=== PATIENT | female | born 1980 | race Caucasian/White ===

== ENCOUNTER 2016-10-22 21:44 | Emergency (ER) | payer BC ==
[~2016-10-22] VITALS: Ht 160 cm; Wt 99.8 kg
[~2016-10-22 21:44] MED LIST: ATOR10TA66; BIRTH CONTROL PILL; LEVO150T6; LVT.1T PO; PHEN-640 PO; PHEN37.53; Ranitidine; SULF1TAB35 PO
[2016-10-22] MEDS ORDERED: KETOROLAC 60 MG/2 ML VIAL IM ONE (22:00)
[2016-10-22] MEDS ORDERED: morphine INJ 10 MG/ML 1ML (SYR OR VIAL) IM ONE (22:00)
--- NOTE | 2016-10-22 22:01 | ED Back Pain ---
General Chief Complaint: Back Problems Stated Complaint: BACK PAIN Source of Information: Patient Exam Limitations: No Limitations (WILL MAYA APRN) History of Present Illness Time Seen by Provider: 21:59 Initial Comments Medial border mid right scapula that wraps around the right lateral chest wall to the right from the chest. This is worsened with movement of the right arm and deep breathing. This pain became much worse one hour ago suddenly while she was helping her father off of the bedside commode. She is been seeing her regular doctor for this and was recently started on gabapentin because the pain shoots tingling sensations down her right arm when she coughs. She denies any shortness of breath. She was recently started on Flexeril. Location: T-Spine Timing/Duration: Getting Worse, Intermittent Severity: Moderate (WILL MAYA APRN) Allergies and Home Medications Allergies Coded Allergies: No Known Drug Allergies (Unverified , 11/19/11) Home Medications Atorvastatin Calcium 10 Mg Tablet, #30 (Reported) Diclofenac Sodium 50 Mg Tablet.dr, 50 MG PO Q6H PRN for BACK PAIN, #30 Ref 0 Prescribed by: PATRICK OLIVAS on 10/23/16 002 Levothyroxine Sodium 150 Mcg Tablet, #30 (Reported) Methocarbamol 750 Mg Tablet, 1,500 MG PO UD, #60 Ref 0 Prescribed by: PATIRCK OLIVAS on 10/23/1627 Phenazopyridine HCl 200 Mg Tablet, 1 TAB PO BID, #6 Prescribed by: ENRIQUE CHOWDHURY on 03/08/16 0723 Phentermine HCl 37.5 Mg Tablet, #30 (Reported) Sulfamethoxazole/Trimethoprim 1 Each Tablet, 1 EACH PO BID, #14 Prescribed by: ENRIQUE CHOWDHURY on 03/08/16 0723 [ Control Pill] , DAILY, (Reported) [Ranitidine] , (Reported) Constitutional: see HPI EENTM: see HPI Respiratory: see HPI, No cough, No hemoptysis, No orthopnea, No short of breath Genitourinary: no symptoms reported Musculoskeletal: see HPI Skin: no symptoms reported Psychiatric/Neurological: No Symptoms Reported (WILL MAYA APRN) Past Ynfgyyv-Hsthyn-Gwkzqy Hx Patient Social History Type Used: Cigarettes Recent Foreign Travel: No Contact w/Someone Who Travel: No Recent Hopitalizations: No (WILL MAYA APRN) Seasonal Allergies Seasonal Allergies: No (WILL MAYA APRN) Surgeries HX Surgeries: Yes (Cystoscopy, D&C 2002,2003) Surgeries: Orthopedic (WILL MAYA APRN) Respiratory Hx Respiratory Disorders: No (WILL MAYA APRN) Cardiovascular Hx Cardiac Disorders: Yes Cardiac Disorders: High Cholesterol (WILL MAYA APRN) Neurological Hx Neurological Disorders: No (WILL MAYA APRN) Reproductive System Hx Reproductive Disorders: No (WILL MAYA APRN) Genitourinary Hx Genitourinary Disorders: Yes (blood in urine without stones found by urologist) (WILL MAYA APRN) Gastrointestinal Hx Gastrointestinal Disorders: Yes Gastrointestinal Disorders: Gastroesophageal Reflux (WILL MAYA APRN) Musculoskeletal Hx Musculoskeletal Disorders: Yes Musculoskeletal Disorders: Chronic Back Pain (WILL MAYA APRN) Endocrine Hx Endocrine Disorders: Yes Endocrine Disorders: Hypothyroidsim (WILL MAYA APRN) HEENT HX ENT Disorders: No (WILL MAYA APRN) Cancer Hx Cancer: No (WILL MAYA APRN) Psychosocial Hx Psychiatric Problems: No (WILL MAYA APRN) Integumentary HX Skin/Integumentary Disorder: No (WILL MAYA APRN) Blood Transfusions Hx Blood Disorders: No (WILL MAYA APRN) Physical Exam Vital Signs Vital Sign - Last 12Hours 10/22/16 21:51 Temp 97.5 Pulse 85 Resp 20 B/P (MAP) 133/94 Pulse Ox 96 O2 Delivery Room Air (PATRICK OLIVAS DO) Vital Signs Capillary Refill : (WILL MAYA APRN) General Appearance: No Apparent Distress, WD/WN HEENT: PERRL/EOMI, TMs Normal Neck: Full Range of Motion, Normal Inspection Cardiovascular: Normal Peripheral Pulses, Tachycardia (105. She is crying.) Respiratory: Normal Breath Sounds, No Accessory Muscle Use, No Respiratory Distress Gastrointestinal: Normal Bowel Sounds, Non Tender, Soft Extremity: Normal Capillary Refill, Normal Inspection, Other (Limited range of motion of the shoulder) Neurologic/Psychiatric: Alert, Oriented x3, No Motor/Sensory Deficits, Normal Mood/Affect Skin: Normal Color, Warm/Dry (WILL MAYA APRN) Progress/Results/Core Measures Results/Orders Lab Results Laboratory Tests Test 10/22/16 22:29 Range/Units White Blood Count 9.5 4.3-11.0 10^3/uL Red Blood Count 4.40 4.35-5.85 10^6/uL Hemoglobin 13.4 11.5-16.0 G/DL Hematocrit 40 35-52 % Mean Corpuscular Volume 91 80-99 FL Mean Corpuscular Hemoglobin 31 25-34 PG Mean Corpuscular Hemoglobin Concent 34 32-36 G/DL Red Cell Distribution Width 13.5 10.0-14.5 % Platelet Count 318 130-400 10^3/uL Mean Platelet Volume 9.4 7.4-10.4 FL Neutrophils (%) (Auto) 50 42-75 % Lymphocytes (%) (Auto) 42 12-44 % Monocytes (%) (Auto) 6 0-12 % Eosinophils (%) (Auto) 3 0-10 % Basophils (%) (Auto) 1 0-10 % Neutrophils # (Auto) 4.7 1.8-7.8 X 10^3 Lymphocytes # (Auto) 3.9 1.0-4.0 X 10^3 Monocytes # (Auto) 0.5 0.0-1.0 X 10^3 Eosinophils # (Auto) 0.2 0.0-0.3 10^3/uL Basophils # (Auto) 0.1 0.0-0.1 10^3/uL D-Dimer 1.49 H 0.00-0.49 UG/ML (PATRICK OLIVAS DO) My Orders Orders - PATRICK OLIVAS DO Ct Angio Chest W (10/22/16 23:09) Methocarbamol Tablet (Robaxin Tablet) (10/23/16 00:30) Rx-Hydrocodone/Apap 5-325 Mg (Rx-Vicodin (10/23/16 00:30) (PATRICK OLIVAS DO) Medications Given in ED (PATRICK OLIVAS DO) Vital Signs/I&O Vital Sign - Last 12Hours 10/22/16 10/23/16 21:51 00:44 Temp 97.5 Pulse 85 71 Resp 20 18 B/P (MAP) 133/94 Pulse Ox 96 97 O2 Delivery Room Air (PATRICK OLIVAS DO) Diagnostic Imaging Diagonstic Imaging: CT Plain Films/CT/US/NM/MRI: chest, c-spine, other (t-spine all failed to reveal anything acute) Reviewed: [facility]) Departure Communication Progress Notes 2233- labs are pending given the questionable right middle lobe infiltrate on x- ray combined with her pleuritic chest pain. Awaiting CT interpretation. Care turned over to Dr. Olivas. (WILL MAYA APRN) Impression Impression: Primary Impression: Acute on chronic cervical-thoracic back pain Additional Impression: Acute thoracic myofascial strain Disposition: HOME, SELF-CARE Condition: Stable Departure-Patient Inst. Decision time for Depature: 00:25 (PATRICK OLIVAS DO) Referrals: [facility] (PCP/Family) Primary Care Physician Patient Instructions: Upper Back Pain (DC) Add. Discharge Instructions: All discharge instructions reviewed with patient and/or family. Voiced understanding. MIGHT CHECK WITH YOUR PCP REGARDING PHYSICAL THERAPY OR CHIROPRACTIC FOLLOW UP. Scripts Methocarbamol (Robaxin-750) 750 Mg Tablet 1500 MG PO UD for BACK PAIN/SPASM, #60 TAB 0 Refills Prov: PATRICK OLIVAS DO 10/23/16 Diclofenac Sodium (Diclofenac Sodium) 50 Mg Tablet. 50 MG PO Q6H Y for BACK PAIN, #30 TAB 0 Refills Prov: PATRICK OLIVAS DO 10/23/16 WILL MAYA APRN Oct 22, 2016 22:01 PATRICK OLIVAS DO Oct 23, 2016 00:28
[2016-10-22 22:44] LABS: BASOPHILS # (AUTO) 0.1 10^3/uL (0.0-0.1); BASOPHILS % (AUTO) 1 % (0-10); EOSINOPHILS # (AUTO) 0.2 10^3/uL (0.0-0.3); EOSINOPHILS % (AUTO) 3 % (0-10); LYMPHOCYTES # (AUTO) 3.9 X 10^3 (1.0-4.0); LYMPHOCYTES % (AUTO) 42 % (12-44); MEAN CORPUSCULAR HEMOGLOBIN 31 PG (25-34); MEAN CORPUSCULAR HGB CONC 34 G/DL (32-36); MEAN CORPUSCULAR VOLUME 91 FL (80-99); MEAN PLATELET VOLUME 9.4 FL (7.4-10.4); MONOCYTES # (AUTO) 0.5 X 10^3 (0.0-1.0); MONOCYTES % (AUTO) 6 % (0-12); NEUTROPHILS # (AUTO) 4.7 X 10^3 (1.8-7.8); NEUTROPHILS % (AUTO) 50 % (42-75); PLATELET COUNT 318 10^3/uL (130-400); RED CELL DISTRIBUTION WIDTH 13.5 % (10.0-14.5); WHITE BLOOD COUNT 9.5 10^3/uL (4.3-11.0)
[2016-10-22] MEDS ORDERED: IOHEXOL 350 MG/ML 100 ML (OMNIPAQUE 350) VIAL IV ONE (23:30)
[2016-10-22] MEDS ORDERED: NS 100 ML (IVPB) BAG IV ONE (23:30)
[2016-10-23] MEDS ORDERED: METH-313 PO (00:28)
[2016-10-23] MEDS ORDERED: DICL50TA6 PO (00:28)
[2016-10-23] MEDS ORDERED: RX-HYDROCODONE/APAP 5/325 MG #4 TAB PK PO PRN (00:30)
[2016-10-23] MEDS ORDERED: METHOCARBAMOL 750 MG (ROBAXIN) TAB PO ONE (00:30)
[2016-10-23 00:44] VITALS: BP 130/95
--- NOTE | 2016-10-23 08:13 | Diagnostic Imaging Report ---
PA and lateral views of the chest. INDICATION: Patient was lifting someone and heard a pop in the back with back pain. FINDINGS: There is a right middle lobe atelectasis and opacity in a linear fashion suggestive of atelectasis. The left lung is clear. The heart size is normal. No effusion or pneumothorax. Mediastinum and lissette appear unremarkable. IMPRESSION: Subsegmental atelectasis in the right middle lobe. Dictated by: Dictated on workstation # [id number]
--- NOTE | 2016-10-23 08:32 | Diagnostic Imaging Report ---
EXAMINATION: CT cervical spine and thoracic spine performed without intravenous contrast. INDICATION: Patient was lifting someone and heard a pop in her back with back and neck pain. FINDINGS: CT cervical spine: There is straightening of the lordotic curvature. The alignment of the posterior spinal line, the facet joints, the lateral masses of C1 and C2, and the atlantooccipital joints is satisfactory. The vertebral body heights are preserved. Disc heights are also preserved. There is minimal osteophyte formation at C5-C6 level with mild disc herniation suggested. No fracture seen. No foraminal stenosis. CT thoracic spine: There is satisfactory alignment of the posterior spinal line and the facet joints. The vertebral body heights are normal. The disc heights are also normal. There is suggestion of a disc herniation, T6-T7 level. No other definite disc herniation is seen. No posterior osteophytes. Multilevel mild anterior osteophytes are noted. No fracture is seen. IMPRESSION: CT cervical spine: 1. Straightening of the lordotic curvature is presumably positional. No fracture seen. 2. Minimal posterior osteophyte and disc herniation suggested at C5-C6 level. CT thoracic spine: 1. No fracture seen. 2. Suggestion of disc herniation at T6-T7 level. 3. The effect of the above-mentioned disc herniations on the thecal sac and spinal cord can be better evaluated with MRI if needed. Dictated by: Dictated on workstation # [id number]
--- NOTE | 2016-10-23 08:37 | Diagnostic Imaging Report ---
PROCEDURE: CT angiography of the chest with contrast. TECHNIQUE: Multiple contiguous axial images were obtained through the chest after uneventful bolus administration of intravenous contrast. Reconstructed CTA MIP acquisitions were also performed. INDICATION: Difficulty breathing. Patient heard a pop while lifting someone. Back pain. FINDINGS: The thoracic aorta is normal in caliber. No aneurysm or dissection. The pulmonary arteries are well opacified with no filling defects to suggest pulmonary embolism. The mediastinum demonstrates anterior soft tissue density likely related to remnant of the thymus. No lymphadenopathy. No hilar lymphadenopathy either. There is a no axillary lymphadenopathy as well. The heart size is normal. No pericardial or pleural effusion. There are linear areas of subsegmental consolidation within the right middle lobe and lingula suggestive of atelectasis. There is otherwise no significant consolidation, mass, or suspicious pulmonary nodule. Sections of the upper abdomen and the osseous structures demonstrate no significant abnormality. IMPRESSION: 1. No aortic dissection or pulmonary embolism. 2. Suggestion of subsegmental atelectasis in the right middle lobe and the lingula. Dictated by: Dictated on workstation # [id number]
== END 2016-10-23 00:43 | disposition home or self-care (01) ==
LOC: EDUNIT# 21:44 → ER 21:45
DX: S29.019A Strain of muscle and tendon of unspecified wall of thorax, initial encounter (principal); M54.2 Cervicalgia; G89.29 Other chronic pain; E78.00 Pure hypercholesterolemia, unspecified; E03.9 Hypothyroidism, unspecified; F17.210 Nicotine dependence, cigarettes, uncomplicated; X58.XXXA Exposure to other specified factors, initial encounter
CPT/HCPCS: 36415; 71020; 71275; 72125; 72128; 85025; 85379; 96372

== ENCOUNTER 2017-02-08 08:52 | Emergency (ER) | payer BC ==
[~2017-02-08] VITALS: Ht 160 cm; Wt 77.1 kg
[~2017-02-08 08:52] MED LIST changes: +DICL50TA6 PO; +METH-313 PO
--- OUTSIDE RECORDS SUMMARY | 2017-02-08 08:57 | XMS REPORT ---
Author Author PATRICK ANGEL [facility] Address [address] [place] [address] Care Team Providers Care Digital Sales Director Name Role Phone PATRICK ANGEL Unavailable PROBLEMS Type Condition ICD9-CM Code [id number] Code Onset Dates Condition Status SNOMED Code Problem Obesity (BMI 35.0-39.9 without comorbidity) E66.01 Active 627547512 Problem Tobacco abuse Z72.0 Active 627750153 Problem Hematuria R31.9 Active 17076190 Problem Bilateral headaches R51 Active 786325167 Problem Left low back pain, with sciatica presence unspecified M54.5 Active 154273635 Problem Lumbago with sciatica, right side M54.41 Active 958721813 Problem Hypothyroidism (acquired) E03.9 Active 570188454 Problem Mixed hyperlipidemia E78.2 Active 598750049 Problem Urinary incontinence in female R32 Active 353947976 Problem Psoriasis L40.9 Active 0594177 Problem Non morbid obesity due to excess calories E66.09 Active 271598479 ALLERGIES Substance Reaction Event Type Date Status Tramadol HCl nausea Drug Allergy May, Active Topamax neuropathy Drug Allergy May, Active Parafon Forte DSC irritability Drug Allergy May, Active BuSpar anaphylaxis Drug Allergy May, Active SOCIAL HISTORY No smoking Hx information available PLAN OF CARE VITAL SIGNS Height 62 in 2016-05-16 Weight 208.1 lbs 2016-05-16 Temperature 98.4 degrees Fahrenheit 2016-05-16 Heart Rate 78 bpm 2016-05-16 Respiratory Rate 18 2016-05-16 BMI 38.06 kg/m2 2016-05-16 Blood pressure systolic 112 mmHg 2016-05-16 Blood pressure diastolic 74 mmHg 2016-05-16 MEDICATIONS Medication Instructions Dosage Frequency Start Date End Date Duration Status Ortho Tri-Cyclen (28) 0.18/0.215/0.25 MG-35 MCG Orally Once a day 1 tablet 24h Active Atorvastatin Calcium 10 mg Orally Once a day 1 tablet 24h Jan, 30 day(s) Active Acidophilus - Orally Once a day 1 tablet 24h Apr, Active Ranitidine HCl 150 mg take 1 capsule (150 mg) by oral route 2 times per day Nov, Active Ativan 0.5 MG 1 tablet 12h 18 Jun, 2014 Active Levothyroxine Sodium 150 MCG Orally Once a day 1 tablet 24h 30 Active Phentermine HCl 37.5 MG Orally Once a day 1 tablet 24h Active RESULTS No Results PROCEDURES Procedure Date Ordered Related Diagnosis Body Site Office Visit, Est Pt., Level 3 May 16, 2016 IMMUNIZATIONS No Known Immunizations
--- OUTSIDE RECORDS SUMMARY | 2017-02-08 08:57 | XMS REPORT ---
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 Name Role Phone PATRICK ANGEL Unavailable PROBLEMS Type Condition ICD9-CM Code [id number] Code Onset Dates Condition Status SNOMED Code Problem Obesity (BMI 35.0-39.9 without comorbidity) E66.01 Active 159082398 Problem Tobacco abuse Z72.0 Active 346782709 Problem Hematuria R31.9 Active 63752314 Problem Bilateral headaches R51 Active 751004087 Problem Left low back pain, with sciatica presence unspecified M54.5 Active 383232421 Problem Lumbago with sciatica, right side M54.41 Active 006558136 Problem Hypothyroidism (acquired) E03.9 Active 259111188 Problem Mixed hyperlipidemia E78.2 Active 046684839 Problem Urinary incontinence in female R32 Active 088311786 Problem Psoriasis L40.9 Active 6346248 Problem Non morbid obesity due to excess calories E66.09 Active 676586926 ALLERGIES Substance Reaction Event Type Date Status Tramadol HCl nausea Drug Allergy May, Active Topamax neuropathy Drug Allergy May, Active Parafon Forte DSC irritability Drug Allergy May, Active BuSpar anaphylaxis Drug Allergy May, Active SOCIAL HISTORY No smoking Hx information available PLAN OF CARE VITAL SIGNS Height 62 in 2016-05-22 Weight 209.3 lbs 2016-05-22 Temperature 98.3 degrees Fahrenheit 2016-05-22 Heart Rate 92 bpm 2016-05-22 Respiratory Rate 20 2016-05-22 BMI 38.28 kg/m2 2016-05-22 Blood pressure systolic 116 mmHg 2016-05-22 Blood pressure diastolic 82 mmHg 2016-05-22 MEDICATIONS Medication Instructions Dosage Frequency Start Date End Date Duration Status Atorvastatin Calcium 10 mg Orally Once a day 1 tablet 24h Jan, 30 day(s) Active Levothyroxine Sodium 150 MCG Orally Once a day 1 tablet 24h 30 Active Acidophilus - Orally Once a day 1 tablet 24h Apr, Active Pyridium 100 MG Orally Three times a day 1 tablet after meals 8h May, May, 2 day(s) Active Ativan 0.5 MG 1 tablet 12h 18 Jun, 2014 Active Ortho Tri-Cyclen (28) 0.18/0.215/0.25 MG-35 MCG Orally Once a day 1 tablet 24h Active Ranitidine HCl 150 mg take 1 capsule (150 mg) by oral route 2 times per day Nov, Active Phentermine HCl 37.5 MG Orally Once a day 1 tablet 24h Active Bactrim DS 800-160 MG Orally Twice a day 1 tablet 12h 12 May, 2016May 10 day(s) Active RESULTS Name Result Date Reference Range UA LONG DIP (IN HOUSE) 2016-05-22 Lot # [id number] Exp date 01/2017 Clarity clear Color yellow Odor none GLU negative RAOUL negative KET negative SG 1.015 BLO 1+ pH 7.5 Protein negative URO 0.2 NIT negative SADAF negative Lot # Exp date PROCEDURES Procedure Date Ordered Related Diagnosis Body Site URINALYSIS, AUTO, W/O SCOPE May 22, 2016 Office Visit, Est Pt., Level 3 May 22, 2016 IMMUNIZATIONS No Known Immunizations
--- OUTSIDE RECORDS SUMMARY | 2017-02-08 08:58 | XMS REPORT | Continuity of Care Document ---
Author Author [facility] Address Unknown Phone Unavailable Allergies Medications Problems Date Dx Coded Attending Type Code Diagnosis Diagnosed By 11/15/2008 709.9 DERMATITIS OTHER SKIN DISORDERS 11/15/2008 709.9 DERMATITIS OTHER SKIN DISORDERS 11/15/2008 709.9 DERMATITIS OTHER SKIN DISORDERS 11/15/2008 PATRICK ANGEL APRN 709.9 DERMATITIS OTHER SKIN DISORDERS 11/15/2008 PATRICK ANGEL APRN 709.9 DERMATITIS OTHER SKIN DISORDERS 11/15/2008 MARIAN MEDINA DDS 709.9 DERMATITIS OTHER SKIN DISORDERS 11/15/2008 PATRICK ANGEL APRN 709.9 DERMATITIS OTHER SKIN DISORDERS 11/15/2008 PATRICK ANGEL APRN 709.9 DERMATITIS OTHER SKIN DISORDERS 11/15/2008 PATRICK ANGEL APRN 709.9 DERMATITIS OTHER SKIN DISORDERS 11/15/2008 PATRICK ANGEL APRN 709.9 DERMATITIS OTHER SKIN DISORDERS 11/15/2008 PATRICK ANGEL APRN 709.9 DERMATITIS OTHER SKIN DISORDERS 11/15/2008 PATRICK ANGEL APRN 709.9 DERMATITIS OTHER SKIN DISORDERS 11/15/2008 PATRICK ANGEL APRN 709.9 DERMATITIS OTHER SKIN DISORDERS 11/15/2008 PATRICK ANGEL APRN 709.9 DERMATITIS OTHER SKIN DISORDERS 11/15/2008 PATRICK ANGEL APRN 709.9 DERMATITIS OTHER SKIN DISORDERS 11/15/2008 PATRICK ANGEL APRN 709.9 DERMATITIS OTHER SKIN DISORDERS 11/15/2008 PATRICK ANGEL APRN 709.9 DERMATITIS OTHER SKIN DISORDERS 05/13/2010 300.00 anxiety 05/13/2010 300.00 anxiety 05/13/2010 300.00 anxiety 05/13/2010 PATRICK ANGEL APRN 300.00 anxiety 05/13/2010 PATRICK ANGEL APRN 300.00 anxiety 05/13/2010 MARIAN MEDINA DDS 300.00 anxiety 05/13/2010 STANLEY TERMITE EXTERMINATOR HELPER, PATRICK T 300.00 anxiety 05/13/2010 STANLEY TERMITE EXTERMINATOR HELPER, PATRICK T 300.00 anxiety 05/13/2010 STANLEY TERMITE EXTERMINATOR HELPER, PATRICK T 300.00 anxiety 05/13/2010 STANLEY TERMITE EXTERMINATOR HELPER, PATRICK T 300.00 anxiety 05/13/2010 STANLEY TERMITE EXTERMINATOR HELPER, PATRICK T 300.00 anxiety 05/13/2010 STANLEY TERMITE EXTERMINATOR HELPER, PATRICK T 300.00 anxiety 05/13/2010 STANLEY TERMITE EXTERMINATOR HELPER, PATRICK T 300.00 anxiety 05/13/2010 STANLEY TERMITE EXTERMINATOR HELPER, PATRICK T 300.00 anxiety 05/13/2010 STANLEY TERMITE EXTERMINATOR HELPER, PATRICK T 300.00 anxiety 05/13/2010 STANLEY TERMITE EXTERMINATOR HELPER, PATRICK T 300.00 anxiety 05/13/2010 STANLEY TERMITE EXTERMINATOR HELPER, PATRICK T 300.00 anxiety 01/22/2011 244.9 HYPOTHYROIDISM 01/22/2011 244.9 HYPOTHYROIDISM 01/22/2011 244.9 HYPOTHYROIDISM 01/22/2011 STANLEY TERMITE EXTERMINATOR HELPER, PATRICK T 244.9 HYPOTHYROIDISM 01/22/2011 STANLEY TERMITE EXTERMINATOR HELPER, PATRICK T 244.9 HYPOTHYROIDISM 01/22/2011 ADAM GAMBINOS, MARIAN N 244.9 HYPOTHYROIDISM 01/22/2011 STANLEY TERMITE EXTERMINATOR HELPER, PATRICK T 244.9 HYPOTHYROIDISM 01/22/2011 STANLEY TERMITE EXTERMINATOR HELPER, PATRICK T 244.9 HYPOTHYROIDISM 01/22/2011 STANLEY TERMITE EXTERMINATOR HELPER, PATRICK T 244.9 HYPOTHYROIDISM 01/22/2011 STANLEY TERMITE EXTERMINATOR HELPER, PATRICK T 244.9 HYPOTHYROIDISM 01/22/2011 STANLEY TERMITE EXTERMINATOR HELPER, PATRICK T 244.9 HYPOTHYROIDISM 01/22/2011 STANLEY TERMITE EXTERMINATOR HELPER, PATRICK T 244.9 HYPOTHYROIDISM 01/22/2011 STANLEY TERMITE EXTERMINATOR HELPER, PATRICK T 244.9 HYPOTHYROIDISM 01/22/2011 STANLEY TERMITE EXTERMINATOR HELPER, PATRICK T 244.9 HYPOTHYROIDISM 01/22/2011 STANLEY TERMITE EXTERMINATOR HELPER, PATRICK T 244.9 HYPOTHYROIDISM 01/22/2011 STANLEY TERMITE EXTERMINATOR HELPER, PATRICK T 244.9 HYPOTHYROIDISM 01/22/2011 STANLEY TERMITE EXTERMINATOR HELPER, PATRICK T 244.9 HYPOTHYROIDISM 02/05/2011 780.50 SLEEP DISTURBANCE, UNSPECIFIED 02/05/2011 780.50 SLEEP DISTURBANCE, UNSPECIFIED 02/05/2011 780.50 SLEEP DISTURBANCE, UNSPECIFIED 02/05/2011 STANLEY TERMITE EXTERMINATOR HELPER, PATRICK T 780.50 SLEEP DISTURBANCE, UNSPECIFIED 02/05/2011 STANLEY TERMITE EXTERMINATOR HELPER, PATRICK T 780.50 SLEEP DISTURBANCE, UNSPECIFIED 02/05/2011 RAFAELHALU IMMANUELS, MARIAN N 780.50 SLEEP DISTURBANCE, UNSPECIFIED 02/05/2011 STANLEY TERMITE EXTERMINATOR HELPER, PATRICK T 780.50 SLEEP DISTURBANCE, UNSPECIFIED 02/05/2011 STANLEY TERMITE EXTERMINATOR HELPER, PATRICK T 780.50 SLEEP DISTURBANCE, UNSPECIFIED 02/05/2011 STANLEY TERMITE EXTERMINATOR HELPER, PATRICK T 780.50 SLEEP DISTURBANCE, UNSPECIFIED 02/05/2011 STANLEY TERMITE EXTERMINATOR HELPER, PATRICK T 780.50 SLEEP DISTURBANCE, UNSPECIFIED 02/05/2011 STANLEY TERMITE EXTERMINATOR HELPER, PATRICK T 780.50 SLEEP DISTURBANCE, UNSPECIFIED 02/05/2011 STANLEY TERMITE EXTERMINATOR HELPER, PATRICK T 780.50 SLEEP DISTURBANCE, UNSPECIFIED 02/05/2011 STANLEY TERMITE EXTERMINATOR HELPER, PATRICK T 780.50 SLEEP DISTURBANCE, UNSPECIFIED 02/05/2011 STANLEY TERMITE EXTERMINATOR HELPER, PATRICK T 780.50 SLEEP DISTURBANCE, UNSPECIFIED 02/05/2011 STANLEY TERMITE EXTERMINATOR HELPER, PATRICK T 780.50 SLEEP DISTURBANCE, UNSPECIFIED 02/05/2011 STANLEY TERMITE EXTERMINATOR HELPER, PATRICK T 780.50 SLEEP DISTURBANCE, UNSPECIFIED 02/05/2011 STANLEY TERMITE EXTERMINATOR HELPER, PATRICK T 780.50 SLEEP DISTURBANCE, UNSPECIFIED 02/26/2011 525.9 TOOTH PAIN 02/26/2011 525.9 TOOTH PAIN 02/26/2011 525.9 TOOTH PAIN 02/26/2011 STANLEY TERMITE EXTERMINATOR HELPER, PATRICK T 525.9 TOOTH PAIN 02/26/2011 STANLEY TERMITE EXTERMINATOR HELPER, PATRICK T 525.9 Tooth Pain 02/26/2011 ADAM GAMBINOS, MARIAN N 525.9 Tooth Pain 02/26/2011 STANLEY TERMITE EXTERMINATOR HELPER, PATRICK T 525.9 Tooth Pain 02/26/2011 STANLEY TERMITE EXTERMINATOR HELPER, PATRICK T 525.9 Tooth Pain 02/26/2011 STANLEY TERMITE EXTERMINATOR HELPER, PATRICK T 525.9 Tooth Pain 02/26/2011 STANLEY TERMITE EXTERMINATOR HELPER, PATRICK T 525.9 Tooth Pain 02/26/2011 STANLEY TERMITE EXTERMINATOR HELPER, PATRICK T 525.9 Tooth Pain 02/26/2011 STANLEY TERMITE EXTERMINATOR HELPER, PATRICK T 525.9 Tooth Pain 02/26/2011 STANLEY TERMITE EXTERMINATOR HELPER, PATRICK T 525.9 Tooth Pain 02/26/2011 STANLEY TERMITE EXTERMINATOR HELPER, PATRICK T 525.9 Tooth Pain 02/26/2011 STANLEY TERMITE EXTERMINATOR HELPER, PATRICK T 525.9 Tooth Pain 02/26/2011 STANLEY TERMITE EXTERMINATOR HELPER, PATRICK T 525.9 Tooth Pain 02/26/2011 STANLEY MCKAYN, PATRICK T 525.9 Tooth Pain 03/26/2011 216.9 MOLE/NEVUS - SITE UNSPECIFIED 03/26/2011 701.9 SKIN TAG 03/26/2011 216.9 MOLE/NEVUS - SITE UNSPECIFIED 03/26/2011 701.9 SKIN TAG 03/26/2011 216.9 MOLE/NEVUS - SITE UNSPECIFIED 03/26/2011 701.9 SKIN TAG 03/26/2011 PATRICK ANGEL APRN T 216.9 MOLE/NEVUS - SITE UNSPECIFIED 03/26/2011 PATRICK ANGEL APRN T 701.9 SKIN TAG 03/26/2011 STANLEY GUARDADO PATRICK T 216.9 Mole/nevus - Site Unspecified 03/26/2011 PATRICK ANGEL APRN T 701.9 Skin Tag 03/26/2011 MUOGHALU DDS, MARIAN N 216.9 Mole/nevus - Site Unspecified 03/26/2011 MUOGHALU DDS, MARIAN N 701.9 Skin Tag 03/26/2011 PATRICK ANGEL APRN T 216.9 Mole/nevus - Site Unspecified 03/26/2011 PATRICK ANGEL APRN T 701.9 Skin Tag 03/26/2011 PATRICK ANGEL APRN T 216.9 Mole/nevus - Site Unspecified 03/26/2011 PATRICK ANGEL APRN T 701.9 Skin Tag 03/26/2011 STANLEY GUARDADO PATRICK T 216.9 Mole/nevus - Site Unspecified 03/26/2011 STANLEY GUARDADO PATRICK T 701.9 Skin Tag 03/26/2011 STANLEY GUARDADO PATRICK T 216.9 Mole/nevus - Site Unspecified 03/26/2011 STANLEY GUARDADO PATRICK T 701.9 Skin Tag 03/26/2011 STANLEY GUARDADO PATRICK T 216.9 Mole/nevus - Site Unspecified 03/26/2011 STANLEY GUARDADO PATRICK T 701.9 Skin Tag 03/26/2011 STANLEY GUARDADO PATRICK T 216.9 Mole/nevus - Site Unspecified 03/26/2011 STANLEY GUARDADO PATRICK T 701.9 Skin Tag 03/26/2011 STANLEY GUARDADO PATRICK T 216.9 Mole/nevus - Site Unspecified 03/26/2011 PATRICK ANGEL APRN T 701.9 Skin Tag 03/26/2011 PATRICK ANGEL APRN T 216.9 Mole/nevus - Site Unspecified 03/26/2011 STANLEY GUARDADO PATRICK T 701.9 Skin Tag 03/26/2011 STANLEY GUARDADO PATRICK T 216.9 Mole/nevus - Site Unspecified 03/26/2011 PATRICK ANGEL APRN T 701.9 Skin Tag 03/26/2011 PATRICK ANGEL APRN T 216.9 Mole/nevus - Site Unspecified 03/26/2011 PATRICK ANGEL APRN T 701.9 Skin Tag 03/26/2011 PATRICK ANGEL APRN T 216.9 Mole/nevus - Site Unspecified 03/26/2011 PATRICK ANGEL APRN T 701.9 Skin Tag 12/01/2011 789.07 ABDOMINAL PAIN GENERALIZED 12/01/2011 789.07 ABDOMINAL PAIN GENERALIZED 12/01/2011 789.07 ABDOMINAL PAIN GENERALIZED 12/01/2011 PATRICK ANGEL APRN T 789.07 ABDOMINAL PAIN GENERALIZED 12/01/2011 PATRICK ANGEL APRN T 789.07 Abdominal Pain Generalized 12/01/2011 ADAM GAMBINOS, MARIAN N 789.07 Abdominal Pain Generalized 12/01/2011 PATRICK ANGEL APRN T 789.07 Abdominal Pain Generalized 12/01/2011 PATRICK ANGEL APRN T 789.07 Abdominal Pain Generalized 12/01/2011 PATRICK ANGEL APRN T 789.07 Abdominal Pain Generalized 12/01/2011 PATRICK ANGEL APRN T 789.07 Abdominal Pain Generalized 12/01/2011 PATRICK ANGEL APRN T 789.07 Abdominal Pain Generalized 12/01/2011 PATRICK ANGEL APRN T 789.07 Abdominal Pain Generalized 12/01/2011 PATRICK ANGEL APRN T 789.07 Abdominal Pain Generalized 12/01/2011 PATRICK ANGEL APRN T 789.07 Abdominal Pain Generalized 12/01/2011 PATRICK ANGEL APRN T 789.07 Abdominal Pain Generalized 12/01/2011 PATRICK ANGEL APRN T 789.07 Abdominal Pain Generalized 12/01/2011 PATRICK ANGEL APRN T 789.07 Abdominal Pain Generalized 12/09/2013 PATRICK ANGEL APRN T 278.00 OBESITY 12/09/2013 PATRICK ANGEL APRN T 278.00 OBESITY 12/09/2013 PATRICK ANGEL APRN T 278.00 OBESITY 12/09/2013 PATRICK ANGEL APRN T 278.00 OBESITY 12/09/2013 PATRICK ANGEL APRN T 278.00 OBESITY 12/09/2013 PATRICK ANGEL APRN T 278.00 OBESITY 12/09/2013 PATRICK ANGEL APRN T 278.00 OBESITY 01/11/2014 PATRICK ANGEL APRN 784.0 HEADACHE 01/11/2014 PATRICK ANGEL APRN 784.0 HEADACHE 01/11/2014 PATRICK ANGLE APRN 784.0 HEADACHE 01/11/2014 PATRICK ANGEL APRN 784.0 HEADACHE 01/11/2014 PATRICK ANGEL APRN 784.0 HEADACHE 03/10/2014 PATRICK ANGEL APRN 272.1 HYPERTRIGLYCERIDEMIA 03/10/2014 PATRICK ANGEL APRN 719.45 PAIN- HIP 03/10/2014 PATRICK ANGEL APRN 724.2 BACK PAIN, LOWER 03/10/2014 PATRICK ANGEL APRN 272.1 HYPERTRIGLYCERIDEMIA 03/10/2014 PATRICK ANGEL APRN 719.45 PAIN- HIP 03/10/2014 PATRICK ANGEL APRN 724.2 BACK PAIN, LOWER Procedures Code Description [place] [id number] [facility] 05/05/2012 89345 ROUTINE VENIPUNCTURE 05/28/2012 64140 ROUTINE VENIPUNCTURE 05/28/2012 92952 TSH 05/28/2012 87185 TSH 05/29/2012 91320 ROUTINE VENIPUNCTURE 06/30/2012 48881 TSH 06/30/2012 82511 A1C (IN-HOUSE) 63674 ROUTINE VENIPUNCTURE 06/17/2013 61366 TSH 06/17/2013 71516 CBC 06/17/2013 [id number] GFR CALC (RESULT ONLY) 06/17/2013 30796 CMP 06/17/2013 97111 ROUTINE VENIPUNCTURE 10/18/2013 65526 TSH 10/18/2013 05687 ROUTINE VENIPUNCTURE 12/09/2013 00845 TSH 12/09/2013 22199 ROUTINE VENIPUNCTURE 01/10/2014 46608 TSH 01/10/2014 97390 ROUTINE VENIPUNCTURE 02/13/2014 [id number] GFR CALC (RESULT ONLY) 02/13/2014 05187 CMP 02/13/2014 12749 LIPID PANEL 02/13 22571 CBC 02/13/2014 Results Encounters ACCT No. Visit Date/Time Discharge Status Pt. Type Provider Facility Loc./Unit Complaint [id number] 05/24/2014 10:56:00 05/24/2014 23: 59:59 CLS Outpatient PATRICK ANGEL APRN [id number] 03/10/2014 10:59:00 03/10/2014 23: 59:59 CLS Outpatient PATRICK ANGEL APRN [id number] 02/13/2014 08:17:00 02/13/2014 23: 59:59 CLS Outpatient PATRICK ANGEL APRN [id number] 02/10/2014 09:23:00 02/10/2014 23: 59:59 CLS Outpatient PATRICK ANGEL APRN [id number] 01/11/2014 10:59:00 01/11/2014 23: 59:59 CLS Outpatient PATRICK ANGEL APRN [id number] 01/10/2014 12:30:00 01/10/2014 23: 59:59 CLS Outpatient PATRICK ANGEL APRN [id number] 12/09/2013 11:11:00 12/09/2013 23: 59:59 CLS Outpatient PATRICK ANGEL APRN [id number] 10/18/2013 16:33:00 10/18/2013 23: 59:59 CLS Outpatient PATRICK ANGEL APRN [id number] 08/03/2013 09:54:00 08/03/2013 23: 59:59 CLS Outpatient PATRICK ANGEL APRN [id number] 07/01/2013 09:48:00 07/01/2013 23: 59:59 CLS Outpatient PATRICK ANGEL APRN [id number] 06/17/2013 09:22:00 06/17/2013 23: 59:59 CLS Outpatient PATRICK ANGEL APRN [id number] 07/08/2012 09:00:00 07/08/2012 23: 59:59 CLS Outpatient WISAMLIYAH STEPHENMARIAN Geetha [id number] 06/30/2012 11:51:00 06/30/2012 23: 59:59 CLS Outpatient PATRICK ANGEL APRN [id number] 05/31/2012 10:47:00 05/31/2012 23: 59:59 CLS Outpatient PATRICK ANGEL APRN [id number] 05/28/2012 10:26:00 05/28/2012 23: 59:59 CLS Outpatient [id number] 04/30/2012 15:30:00 04/30/2012 23: 59:59 CLS Outpatient [id number] 04/08/2012 08:48:00 04/08/2012 23: 59:59 CLS Outpatient
[2017-02-08] MEDS ORDERED: KETOROLAC 30 MG/ML VIAL IM ONE (09:15)
--- NOTE | 2017-02-08 09:16 | ED Back Pain ---
General Chief Complaint: Back Problems Stated Complaint: LOWER BACK PAIN Source of Information: Patient, Old Records Exam Limitations: No Limitations History of Present Illness Time Seen by Provider: 09:00 Initial Comments Patient presents to ER by private conveyance with a chief complaint that she is having some low back pain since yesterday when she was lifting her elderly father and had overextended herself and started hurting about an hour or so after the lifting. The hurting got worse she has a history of chronic back pain and this is the same presentation. She is having mild radiation from her lumbar about 5 inches up her back but no numbness, tingling, incontinence, urinary hesitancy, falls, weakness. She had some Vicoprofen left over from her shoulder pain and she took one of those yesterday but it has not helped. She has not used any NSAIDs or Tylenol. She has used Aspercreme and ice with modest relief. Allergies and Home Medications Allergies Coded Allergies: No Known Drug Allergies (Unverified , 11/19/11) Home Medications Atorvastatin Calcium 10 Mg Tablet, #30 (Reported) Diclofenac Sodium 50 Mg Tablet.dr, 50 MG PO Q6H PRN for BACK PAIN, #30 Ref 0 Prescribed by: PATRICK OLIVAS on 10/23/16 0028 Levothyroxine Sodium 150 Mcg Tablet, #30 (Reported) Methocarbamol 750 Mg Tablet, 1,500 MG PO UD, #60 Ref 0 Prescribed by: PATRICK OLIVAS on 10/23/16 002 Phenazopyridine HCl 200 Mg Tablet, 1 TAB PO BID, #6 Prescribed by: ENRIQUE CHOWDHURY on 03/08/16 0723 Phentermine HCl 37.5 Mg Tablet, #30 (Reported) Sulfamethoxazole/Trimethoprim 1 Each Tablet, 1 EACH PO BID, #14 Prescribed by: ENRIQUE CHOWDHURY on 03/08/16 0723 [ Control Pill] , DAILY, (Reported) [Ranitidine] , (Reported) Constitutional: No chills, No diaphoresis, No fever Respiratory: No cough, No short of breath Cardiovascular: No chest pain, No Hx of Intervention, No palpitations Gastrointestinal: No abdominal pain, No constipation, No diarrhea, No nausea, No vomiting Genitourinary: No discharge, No dysuria : No Musculoskeletal: see HPI, back pain, No joint swelling, muscle pain, muscle stiffness Skin: No pruritus, No rash Psychiatric/Neurological: Denies Headache, Denies Numbness, Denies Paresthesia , Denies Pre-Existing Deficit Past [id number] Hx Patient Social History Alcohol Use: Denies Use Recreational Drug Use: No Smoking Status: Current Everyday Smoker Type Used: Cigarettes Recent Foreign Travel: No Contact w/Someone Who Travel: No Recent Hopitalizations: No Physical Abuse: No Sexual Abuse: No Mistreated: No Fear: No Seasonal Allergies Seasonal Allergies: No Surgeries History of Surgeries: Yes (Cystoscopy, D&C 2002,2003) Surgeries: Orthopedic Respiratory History of Respiratory Disorde: No Cardiovascular History of Cardiac Disorders: Yes Cardiac Disorders: High Cholesterol Neurological History of Neurological Disord: No Reproductive System Hx Reproductive Disorders: No Genitourinary History of Genitourinary Disor: No Gastrointestinal History of Gastrointestinal Di: Yes Gastrointestinal Disorders: Gastroesophageal Reflux Musculoskeletal History of Musculoskeletal Dis: Yes Musculoskeletal Disorders: Chronic Back Pain Endocrine History of Endocrine Disorders: Yes Endocrine Disorders: Hypothyroidsim Cancer History of Cancer: No Psychosocial History of Psychiatric Problem: No Suicide Risk Score: 0 Integumentary History of Skin or Integumenta: No Blood Transfusions History of Blood Disorders: No Physical Exam Vital Signs Capillary Refill : General Appearance: No Apparent Distress, WD/WN HEENT: PERRL/EOMI, Pharynx Normal Neck: Full Range of Motion, Supple Cardiovascular: No Edema, Normal Peripheral Pulses Respiratory: No Accessory Muscle Use, No Respiratory Distress Peripheral Pulses: 2+ Dorsalis Pedis (R), 2+ Left Dors-Pedis (L) Back: Normal Inspection, No CVA Tenderness, Vertebral Tenderness (lumbar bilateral) Extremity: Normal Capillary Refill, No Pedal Edema Neurologic/Psychiatric: Alert, Oriented x3, No Motor/Sensory Deficits Skin: Normal Color, Warm/Dry Progress/Results/Core Measures Results/Orders My Orders Orders - JEFRY RODRIGUEZ Ketorolac Injection (Toradol Injection) (02/08/17 09:15) Departure Impression Impression: Primary Impression: Back strain Qualified Codes: S39.012A - Strain of muscle, fascia and tendon of lower back , initial encounter Disposition: 01 HOME, SELF-CARE Condition: Stable Departure-Patient Inst. Decision time for Depature: 09:14 Referrals: [facility] (PCP/Family) Primary Care Physician Patient Instructions: Lumbar Muscle Strain (DC) Add. Discharge Instructions: For the next 2 weeks please take either 2 capsules a Naprosyn/Aleve twice a day or 4 tablets of ibuprofen 3 times a day [id number]. For breakthrough pain you may use the Vicoprofen you have at home or 1000 g of Tylenol every 8 hours. You may also use cyclobenzaprine every 8 hours as a muscle relaxer. This medicine may cause you to be drowsy. We'll start you on a dose of steroids take one tablet twice a day for the next 5 days and expect some relief to start in 12 -24 hours. Use ice, Aspercreme, back brace and rest. Do not lift above 20 pounds and not above the level of the shoulders. Please work on back strengthening exercises and stretching and use proper lifting ergonomics outlined in the handout on low back pain. If you're not seeing some improvement in 2 weeks he should follow-up with her primary care physician for referral to physical therapy or consider going to a chiropractor. All discharge instructions reviewed with patient and/or family. Voiced understanding. Scripts Prednisone (Prednisone) 20 Mg Tab 20 MG PO BID for 5 Days, #10 TAB 0 Refills Prov: JEFRY RODRIGUEZ 02/08/17 Cyclobenzaprine HCl (Cyclobenzaprine HCl) 10 Mg Tablet 10 MG PO Q8H Y for SPASMS, #15 TAB 0 Refills Prov: JEFRY RODRIGUEZ 02/08/17 Copy Copies To 1: ALIX WHYTE TITUS J Feb 08, 2017 09:16
[2017-02-08] MEDS ORDERED: CYCL10TA9 PO (09:17)
[2017-02-08] MEDS ORDERED: PRD20T PO (09:17)
[2017-02-08 09:31] VITALS: BP 123/74
== END 2017-02-08 09:31 | disposition home or self-care (01) ==
LOC: EDUNIT# 08:52 → ER 08:53
DX: S39.012A Strain of muscle, fascia and tendon of lower back, initial encounter (principal); E03.9 Hypothyroidism, unspecified; K21.9 Gastro-esophageal reflux disease without esophagitis; E78.00 Pure hypercholesterolemia, unspecified; F17.210 Nicotine dependence, cigarettes, uncomplicated; X50.0XXA Overexertion from strenuous movement or load, initial encounter
CPT/HCPCS: 96372; 99284